=== PATIENT | female | born 1980 | race Caucasian/White ===

== ENCOUNTER 2019-08-17 11:20 | Outpatient (CLI) | payer OTHER, SELFPAY ==
--- NOTE | ~2019-08-17 | CT_ITS ---
EXAMINATION: CT chest wo con DATE: 08/17/2019 11:53 INDICATION: Chest pain and indigestion TECHNIQUE: Computed tomography (CT) of the chest was performed without intravenous contrast. The dose -length product (DLP) was 132.92 mGy-cm. Automated exposure control and iterative reconstruction tech nique were employed. COMPARISON: 10/12/2015 FINDINGS: The lungs are free of acute opacities. There is no pleural effusion or pneumothorax. No pat hologically enlarged thoracic lymph nodes are identified. The heart size is normal. The visualized os seous structures are unremarkable. Punctate calcifications in an otherwise normal spleen likely repre sent healed granulomatous disease. IMPRESSION: 1. No CT correlate for the patient's symptoms. Reviewed, dictated and finalized at location A.
== END 2019-08-17 11:21 | disposition home or self-care (01) ==
PROVIDERS: PCP Internal Medicine; Visit Provider Internal Medicine
DX: R07.9 Chest pain, unspecified (principal)
CPT/HCPCS: 71250

== ENCOUNTER 2020-05-09 17:14 | Emergency (ER) | payer OTHER, SELFPAY ==
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
[2020-05-09 17:26] VITALS: BP 146/80; PULSE 69; RESP 16; TEMP 36.5; O2SAT 100
== END 2020-05-09 17:40 | disposition home or self-care (01) ==
PROVIDERS: Emergency Provider Nurse Practitioner; PCP Internal Medicine
DX: M77.8 Other enthesopathies, not elsewhere classified (principal)
CPT/HCPCS: 73110; 99213; G0463

== ENCOUNTER 2020-10-10 17:21 | Emergency (ER) | payer OTHER, SELFPAY ==
[2020-10-10 17:30] VITALS: BP 130/84; PULSE 103; RESP 16; TEMP 37.2; O2SAT 100
--- NOTE | 2020-10-10 17:52 | ED.ABDPAIN ---
HPI - Abdominal Pain General Chief Complaint: Abdominal Pain Stated Complaint: HEADACHE Time Seen by Provider: 10/10/20 17:34 Source: patient and RN notes reviewed Mode of arrival: ambulatory Limitations: no limitations History of Present Illness HPI narrative: Patient presents today complaining of a 2-day history of generalized abdominal pain she had some diarrhea 2 days ago, but this is now resolved. She currently rates her pain 5/10 and has been taking Pepcid, Nexium, and Pepto-Bismol without relief. Patient works at [employer] and states she was triaged through triage line through her work and was told to go to an ER or urgent care in the area to be evaluated. Patient denies any urinary symptoms to include dysuria, hematuria, frequency or urgency. History of ovarian cyst on the right that is very large. SOAPSTONER would like to have it removed, but patient has not gotten around to having the surgery yet. MD elicited complaint: abdominal pain Related Data Home Medications Medication Instructions Recorded Confirmed esomeprazole magnesium mg 05/09/20 Allergies Allergy/AdvReac Type Severity Reaction Status Date / Time sumatriptan Allergy Unknown Verified 02/20/14 09:18 Review of Systems Review of Systems: CONSTITUTIONAL: Denies body aches, fever, chills, or sweats. EYES: Denies visual changes, redness, or discharge. ENT: Denies rhinorrhea, congestion, sore throat, or otalgia. CARDIOVASCULAR: Denies chest pain, palpitations, or edema. RESPIRATORY: Denies cough or dyspnea. GASTROINTESTINAL: Denies vomiting, or diarrhea. + Nausea, abdominal pain GENITOURINARY: Denies dysuria or hematuria. SKIN: Denies rash, itching, or wounds. MUSCULOSKELETAL: Denies back pain, joint pain, or myalgia. NEUROLOGIC: Denies headache, numbness, tingling, or weakness. PSYCH: Denies depression or anxiety. [facility] Past Medical History Medical History (Updated 10/10/20 @ 18:51 by Samara Rausch, RAJESH, BC) GERD (gastroesophageal reflux disease) Migraine Ovarian cyst Family History Family History Other Family history of arthritis Family history of heart disease in male family member before age 55 Family history of malignant neoplasm Hypertension Social History Social History Smoking status: Never smoker Alcohol intake: current Comments At time of signature, I have reviewed and agree with nursing past medical, surgical, social and family history unless otherwise noted. Please see nursing chart for further information. There is no relevant family history pertinent to the presenting complaint Exam Narrative: GENERAL: Well-appearing, well-nourished, and in no acute distress. HEAD: Normocephalic, atraumatic. EYES: EOMI. No redness or drainage. Conjunctivae normal. ENT: Mucous membranes pink and moist. NECK: Normal AROM. CHEST: No respiratory distress. Clear to auscultation. HEART: Regular rate and rhythm. No murmur appreciated. Normal peripheral pulses. ABDOMEN: Soft, nondistended, normal active bowel sounds. Lower abdominal tenderness bilaterally. No rebound or guarding. MUSCULOSKELETAL: No bony tenderness. EXTREMITIES: Normal range of motion. No edema. SKIN: Warm, dry, no rash. Capillary refill normal. Normal skin turgor. NEURO: No focal deficits. Alert and oriented x3. Gait steady. PSYCH: Normal affect. No signs of depression or anxiety. Course Course Emergency Course: Patient declines transfer to the ER today. States she wants to follow-up with her PCP tomorrow and request an outpatient CT scan. Instructed to take ibuprofen for her pain. Also instructed to go to the ER if she starts running a fever or with any worsening severe pain. Patient agrees. Vital Signs Vital signs: Vital Signs Temperature 99 F 10/10/20 17:30 Pulse Rate 103 H 10/10/20 17:30 Respiratory R
== END 2020-10-10 18:01 | disposition home or self-care (01) ==
PROVIDERS: Emergency Provider Nurse Practitioner; PCP Internal Medicine
DX: R10.30 Lower abdominal pain, unspecified (principal); K21.9 Gastro-esophageal reflux disease without esophagitis
CPT/HCPCS: 81003; 99212; G0463

== ENCOUNTER → 2022-04-29 10:31 | Outpatient (CLI) | payer OTHER, SELFPAY ==
--- NOTE | ~2022-04-29 | XR_ITS ---
Right foot Technique: AP and lateral standing views were obtained. Clinical History: Pain Findings: No acute fracture or dislocation is seen. Osseous alignment is anatomic. Small plantar calc aneal spur noted. Joint spaces are preserved without erosive or degenerative change. Soft tissues are unremarkable. Impression: Small plantar calcaneal spur, otherwise unremarkable exam. Reviewed, dictated and finalized at [facility]. 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
--- NOTE | ~2022-04-29 | XR_ITS ---
Left foot Technique: AP and lateral standing were obtained. Clinical History: Pain Findings: No acute fracture or dislocation is seen. Osseous alignment is anatomic. Joint spaces are p reserved without erosive or degenerative change. Soft tissues are unremarkable. Impression: Unremarkable left foot radiographs. Reviewed, dictated and finalized at [facility]. ICE CARE TRANSITIONS COORDINATOR Impression: Unremarkable left foot radiographs.
--- NOTE | ~2022-04-29 | XR_ITS ---
AP and oblique views of the SI joints CLINICAL HISTORY: Back pain FINDINGS: SI joints are unremarkable. No significant degenerative change. No sclerosis or erosive michael nge. IUD in place. Left arthroplasty noted. Right hip joint space unremarkable. No other soft tissue abnormality seen. IMPRESSION: Unremarkable SI joints. IUD. Left hip arthroplasty. Reviewed, dictated and finalized at location . 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
== END ==
PROVIDERS: PCP Internal Medicine; Visit Provider Internal Medicine Rheumatology
DX: M79.671 Pain in right foot (principal); M79.672 Pain in left foot; M54.50 Low back pain, unspecified; G89.29 Other chronic pain; Z96.642 Presence of left artificial hip joint; M77.31 Calcaneal spur, right foot
CPT/HCPCS: 72202; 73620

== ENCOUNTER → 2022-09-11 11:07 | Outpatient (CLI) | payer OTHER, SELFPAY ==
--- NOTE | ~2022-09-11 | CT_ITS ---
EXAMINATION: CT hip LT wo con DATE: 09/11/2022 11:31 INDICATION: Check for interval growth/with a noncemented left total hip arthroplasty. TECHNIQUE: High resolution computed tomography (CT) of the left hip was performed without intravenous contrast. Additional sagittal and coronal reconstructions were performed. Automated exposure control and iterative reconstruction technique were employed. The dose-length product was 340.65 mGy-cm. COMPARISON: None FINDINGS: Noncemented left total hip arthroplasty which appears well seated in near-anatomic alignment. The emy tabular component is affixed with a couple screws. Small spicules of trabecular bone density seen ext ending to contact the acetabular component as well as the intertrochanteric region of the femoral com ponent. There is no periprosthetic lucency to suggest loosening. No fracture. No left hip joint effus ion. Mild to moderate osteoarthritis at the left sacroiliac joint. T-shaped IUD in expected position within the anteverted uterus. No pathologically enlarged left pelvic or inguinal lymphadenopathy. IMPRESSION: 1. Expected appearance of a left total hip arthroplasty with no findings to suggest loosening. Reviewed, dictated and finalized at location A. IMPRESSION: 1. Expected appearance of a left total hip arthroplasty with no findings to sug gest loosening.
== END ==
PROVIDERS: PCP Internal Medicine; Visit Provider Orthopaedic Surgery
DX: M25.552 Pain in left hip (principal); G89.29 Other chronic pain; Z96.642 Presence of left artificial hip joint
CPT/HCPCS: 73700

== ENCOUNTER 2023-10-23 12:08 | Emergency (ER) | payer OTHER, SELFPAY ==
--- NOTE | ~2023-10-23 | XR_ITS ---
EXAMINATION: XR ankle LT min 3V DATE: 10/23/2023 12:43 INDICATION: Bilateral ankle pain post injury is TECHNIQUE: Anteroposterior, oblique, mortise, and lateral views of the left ankle were obtained. COMPARISON: None. FINDINGS: Bone alignment is normal. No acute fracture. Small corticated ossicle at the tip of the medial malleo becky either chronic nonunited avulsion fracture fragment or more likely heterotopic ossification relat ed to chronic deltoid ligament sprain. Joint spaces at the left ankle and visualized foot are relativ keaton preserved. Diffuse soft tissue swelling about the ankle both medially and laterally. IMPRESSION: 1. No acute osseous abnormality. Reviewed, dictated and finalized at location A.
--- NOTE | ~2023-10-23 | XR_ITS ---
EXAMINATION: XR ankle RT min 3V DATE: 10/23/2023 12:44 INDICATION: Right ankle injury and pain. TECHNIQUE: 4 views of right ankle were obtained. COMPARISON: Right foot radiographs 04/29/2022 FINDINGS: Alignment is normal. No fracture. Joint spaces are normal. There is an enthesophyte at plan tar aspect of calcaneal tuberosity. There is ankle soft tissue swelling. IMPRESSION: 1. No fracture. Reviewed, dictated and finalized at location A. IMPRESSION: 1. No fracture.
[2023-10-23 12:20] VITALS: BP 151/88; PULSE 102; RESP 16; TEMP 36.4; O2SAT 100
--- NOTE | 2023-10-23 12:33 | ED.LOWEXIN ---
HPI - Extremity Injury (Lower) General Chief Complaint: Extremity Injury, Lower Stated Complaint: Left And Right Ankle Pain Time Seen by Provider: 10/23/23 12:33 Source: patient, RN notes reviewed and old records reviewed Mode of arrival: ambulatory Limitations: no limitations History of Present Illness HPI Narrative: 43-year-old [facility] bilateral ankle pain and swelling, worse on left. Patient states that approximately 10:30 this morning she was going down her basement steps and when she reached the bottom her cat got between her feet, causing her to trip. Patient states that she rolled both ankles outward. Patient denies hitting head during fall. Patient reports history dislocation and surgical repair on left ankle, Raynaud's disease, left hip replacement. Patient denies numbness, tingling, weakness. Patient states she has not taken any [id number] medications for pain prior to arrival. Patient arrived with crutches from home. Patient sitting in wheelchair in exam room, in mild distress from pain but still laughing with good sense of humor. Respirations even and nonlabored. Patient in no acute distress. Related Data Home Medications Medication Instructions Recorded Confirmed esomeprazole magnesium 40 mg 40 mg PO DAILY 05/09/20 10/23/23 capsule,delayed release milk thistle 150 mg capsule 150 mg PO BID 09/09/22 10/23/23 multivitamin (Daily Multi-Vitamin 1 tablet PO DAILY 09/09/22 10/23/23 tablet) turmeric 100 mg-jackelyn 150 1 cap PO DAILY 09/09/22 10/23/23 mg-olive 50 mg-oreg 150 mg-capryl capsule Allergies Allergy/AdvReac Type Severity Reaction Status Date / Time sumatriptan Allergy Unknown Anaphylaxis Verified 10/23/23 12:47 Review of Systems Review of Systems: All systems reviewed & are unremarkable except as noted in HPI and below Constitutional: Constitutional: Reports no additional constitutional complaints Eyes: Eyes: Reports no additional eye complaints ENT: Reports system reviewed and no additional complaints, except as documented Cardiovascular: Cardiovascular: Reports no additional cardiovascular complaints, Denies chest pain and Denies dyspnea Respiratory: Respiratory: Reports no additional respiratory complaints, Denies cough and Denies dyspnea Musculoskeletal: Musculoskeletal: Reports as per HPI, Reports abnormal gait, Reports arthralgias, Reports joint swelling, Reports limited range of motion, Denies numbness, Reports radiating pain into limb and Denies tingling Comments: Bilateral ankles; worse on left Neurologic: Reports system reviewed and no additional complaints, except as documented Psychiatric: Psychiatric: Reports no additional psychiatric complaints [facility] Past Medical History Medical History GERD (gastroesophageal reflux disease) Iliopsoas bursitis of left hip Migraine Ovarian cyst Surgical History Surgical History History of ankle surgery 1991- [facility] History of nasal surgery 1992- [facility] History of total left hip arthroplasty 09/30/2021 @[facility] Family History Family History Other Family history of arthritis Family history of heart disease in male family member before age 55 Family history of malignant neoplasm Hypertension Social History Social History Smoking status: Never smoker Alcohol intake: current Substance use type: does not use Living arrangements: with family Occupation/Education: occupation 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
--- NOTE | 2023-10-23 13:47 | PC.NURSE ---
1314 pt refused motrin and reports will take at home. bob keene rn
== END 2023-10-23 13:14 | disposition home or self-care (01) ==
PROVIDERS: Emergency Provider Nurse Practitioner Family; PCP Internal Medicine
DX: S93.402A Sprain of unspecified ligament of left ankle, initial encounter (principal); S93.401A Sprain of unspecified ligament of right ankle, initial encounter; W01.0XXA Fall on same level from slipping, tripping and stumbling without subsequent striking against object, initial encounter; K21.9 Gastro-esophageal reflux disease without esophagitis; I73.00 Raynaud's syndrome without gangrene; Z96.642 Presence of left artificial hip joint
CPT/HCPCS: 73610; 99214; G0463

== ENCOUNTER 2024-06-06 15:58 | Outpatient (CLI) | payer OTHER, SELFPAY ==
--- NOTE | ~2024-06-06 | MR_ITS ---
EXAMINATION: MR lumbar spine wo con DATE: 06/06/2024 16:33 INDICATION: Lumbar radiculopathy TECHNIQUE: Magnetic resonance imaging (MRI) of the lumbar spine was performed without intravenous con trast. Sequences included sagittal T2-weighted FSE, sagittal T2-weighted FS FSE, sagittal T1-weighted FSE, and axial T2-weighted FSE. COMPARISON: 02/07/2017 FINDINGS: Alignment is normal. Vertebral body heights are normal. Interval progression of now severe right-side d predominant disc height loss with associated fibrovascular degenerative endplate changes at L4-L5. Bone marrow signal is otherwise unremarkable. Unchanged moderate disc height loss at L5-S1. Interval progression of now mild disc height loss at L3-L4. There are annular fissures at both L4-L5 and L5-S1 . The conus medullaris terminates at L2. There is normal signal in the caudal spinal cord. Paraverteb ral soft tissues are unremarkable. The following disc levels are specifically discussed: T12-L1: Disc is minimally bulging. There is mild left and moderate right facet joint osteoarthritis. There is no neural foraminal stenosis. There is no central canal stenosis. L1-L2: Disc is minimally bulging. There is moderate right and mild to moderate left facet joint osteo arthritis. There is no neural foraminal stenosis. There is no central canal stenosis. L2-L3: Disc is minimally bulging. There is moderate right and mild left facet joint osteoarthritis. T here is no neural foraminal stenosis. There is no central canal stenosis. L3-L4: Disc is mildly bulging. There is moderate bilateral facet joint osteoarthritis. There is mild bilateral neural foraminal stenosis. There is mild central canal stenosis. L4-L5: Disc is bulging. There is mild left and severe right facet joint osteoarthritis. There is mild left and mild to moderate right neural foraminal stenosis. There is mild central canal stenosis. L5-S1: Disc is bulging. There is moderate bilateral facet joint osteoarthritis. There is moderate lef t and mild to moderate right neural foraminal stenosis. There is no central canal stenosis. IMPRESSION: 1. Interval progression of lower lumbar spondylosis with now severe disc height loss at L5-S1 and mil d disc height loss at L4-L5. Reviewed, dictated and finalized at location A. IMPRESSION: 1. Interval progression of lower lumbar spondylosis with now severe disc height loss at L5-S1 and mild disc height loss at L4-L5.
== END 2024-06-06 15:59 | disposition home or self-care (01) ==
PROVIDERS: PCP Internal Medicine
DX: M47.26 Other spondylosis with radiculopathy, lumbar region (principal)
CPT/HCPCS: 72148

== ENCOUNTER 2024-10-06 15:07 | Emergency (ER) | payer OTHER, SELFPAY ==
--- OUTSIDE RECORDS SUMMARY | 2024-10-06 15:09 | XMS_ITS | Encounter Summary ---
Author Organization [facility] Address [address] [place] [address] Care Team Providers Care Saxophone Assembler Name Role Phone Jorge Alberto Foster MD Primary Care Provider [phone] Celso Barber MD Unavailable [phone] Reason for Visit * Diagnostic Imaging (Routine) - Closed Specialty Diagnoses / Procedures Referred By Cedric jean Referred To Contact Diagnoses Hepatic steatosis Procedures Breast Imaging Diagnostic Outside Reference Kareen Steele MD PhD [id number] [place] [address] Phone: tel: fax: Referral ID Status Reason Start Date Expiration Date Visits Re quested Visits Authorized [id number] Closed 07/02/2021 08/01/2022 1 1 Encounter Details Date Type Department Care Team (Late st Contact Info) Description 05/16/2020 Hospital Encounter [facility] [address] [place] [id number] Social History Tobacco Use Types Packs/Day Years Used Date Smoking Tobacco: Never Smokeless Tobacco: Never Alcohol Use Standard Drinks/Week Comments Yes 0 (1 standard drink = 0.6 oz pur e alcohol) AUDIT-C Answer Date Recorded Q1: How often do you have a drink containing alc ohol? 2-3 times a week 09/30/2021 Q2: How many drinks containi ng alcohol do you have on a typical day when you are drinking? 1 or 2 09/30/2021 Q3: How often do you have si x or more drinks on one occasion? Never 09/30/2021 Personal Safety Answer Date Recorded Have you ever been in or are you currently in a harmful physical or emotional relationship or is someone making you feel afraid or unsafe? 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 2-3 times a week 09/30/2021 6:15 AM NATALIET Roni Brasher RN Q2: How many drinks containing alcohol do you have on a typical day when you are drinking? 1 or 2 09/16/2021 3:04 PM CDT Rukhsana Jimenez RN Q3: How often do you have six or more drinks on one occasion? Never 09/16/2021 3:04 PM CDT Rukhsana Jimenez RN documented as of this encounter Plan of Treatment Not on file documented as of this encounter Procedures Procedure Name Priority Date/Time Associated Diagnosis Comments BREAST IMAGING MG DIAGNOSTIC OUTSIDE REFERENCE Routine 05/16/2020 12:00 AM CDT Hepatic steatosis documented in this encounter Results * Breast Imaging Diagnostic Outside Reference (05/16/2020 12:00 AM CDT) Impressions [facility] - 07/02/2021 2:44 PM CDT These images are for Reference purposes only and have not been reviewed by [facility]. There will be no report generated by a [facility] Radiologist. Narrative [facility] - 07/02/2021 2:44 PM CDT EXAMINATION: Images For Reference Purposes Only us Kareen Steele MD PhD IMG MAMMO PROCEDURES Final Result [facility] documented in this encounter Visit Diagnoses Not on filedocumented in this encounter Additional Health Concerns Infection Onset Date Last Indicated Resolved Time COVID: Suspected 07/16/2021 07/16/2021 07/17/2021 3:05 AM CDT COVID19 07/16/2021 07/16/2021 07/26/2021 3:05 AM CDT COVID: Recovered Comment:Added based on recent COVID infection. 07/26/2021 07/26/2021 11/23/2021 3:05 AM C DT documented as of this encounter Care Teams Saxophone Assembler Relationship Specialty Start Date End Date Jorge Alberto Foster MD PCP - General 01/05/17 10/09/20 Celso Barber MD [address] [facility] [address] [place] [address] Surgeon Orthopedic Surgery 07/22/18 documented as of this encounter
--- OUTSIDE RECORDS SUMMARY | 2024-10-06 15:09 | XMS_ITS | Encounter Summary ---
Author Organization [facility] Address [address] [place] [address] Phone Care Team Providers Care Product Technology Scientist Name Role Phone Jorge Alberto Foster MD Primary Care Provider [phone] Celso Barber MD Unavailable [phone] Radha Cruz DNP Primary Care Provide r Jorge Alberto Foster MD Primary Care Provider [phone] Encounter Details Date Type Department Care Team (Late st Contact Info) Description 06/15/2017 Orders Only [facility] Scanning, Provider Social History Tobacco Use Types Packs/Day Years Used Date Smoking Tobacco: Never Alcohol Use Standard Drinks/Week Comments Yes 0 (1 standard drink = 0.6 oz pur e alcohol) Comments Unknown Sex and Gender Information Value Date Recorded Sex Assigned at Not on file Legal Sex Female 1:26 AM [employer] Gender Identity Not on file Sexual Orientation Not on file documented as of this encounter Plan of Treatment Not on file documented as of this encounter Procedures Procedure Name Priority Date/Time Associated Diagnosis Comments GI - RESULT 06/15/2017 documented in this encounter Results * GI - RESULT (06/15/2017) Anatomical Region Laterality Modality Other us Provider Scanning Edited Result - Final documented in this encounter Visit Diagnoses Not on filedocumented in this encounter Additional Health Concerns Infection Onset Date Last Indicated Resolved Time COVID: Suspected 07/16/2021 07/16/2021 07/17/2021 3:05 AM CDT COVID19 07/16/2021 07/16/2021 07/26/2021 3:05 AM CDT COVID: Recovered Comment:Added based on recent COVID infection. 07/26/2021 07/26/2021 11/23/2021 3:05 AM C DT documented as of this encounter Care Teams Product Technology Scientist Relationship Specialty Start Date End Date Jorge Alberto Foster MD PCP - General 01/05/17 10/09/20 Radha Cruz DNP [id number] [address] PCP - General Nurse Practitioner 10/10/20 08/06/21 Jorge Alberto Foster MD PCP - General Internal Medicine 08/07/21 Celso Barber MD [id number] [address] Surgeon Orthopedic Surgery 07/22/18 documented as of this encounter
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
--- OUTSIDE RECORDS SUMMARY | 2024-10-06 15:09 | XMS_ITS | Encounter Summary ---
Author Organization [facility] Healthcare Address [address] [place] [address] Care Team Providers Care Safety Risk Lead Name Role Phone Jorge Alberto Foster MD Primary Care Provider [phone] Reason for Visit * Diagnostic Imaging (Routine) - Closed Specialty Diagnoses / Procedures Referred By Contac t Referred To Contact Procedures Breast Imaging Screening Outside Reference Kareen Steele MD PhD [phone] [place] [address] Phone: tel: fax: Referral ID Status Reason Start Date Expiration Date Visits Re quested Visits Authorized [id number] Closed 07/02/2021 08/01/2022 1 1 Encounter Details Date Type Department Care Team (Late st Contact Info) Description 12/03/2017 Hospital Encounter [facility] [address] [place] [id number] Social History Tobacco Use Types Packs/Day Years [...] on file 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 2-3 times a week 09/30/2021 6:15 AM CDT Roni Brasher RN Q2: How many drinks containing alcohol do you have on a typical day when you are drinking? 1 or 2 09/16/2021 3:04 PM NATALIET Rukhsana Jimenez RN Q3: How often do you have six or more drinks on one occasion? Never 09/16/2021 3:04 PM CDT Rukhsana Jimenez RN documented as of this encounter Plan of Treatment Not on file documented as of this encounter Procedures Procedure Name Priority Date/Time Associated Diagnosis Comments BREAST IMAGING MG SCREENING OUTSIDE REFERENCE Routine 12/03/2017 12:00 AM CDT documented in this encounter Results * Breast Imaging Screening Outside Reference (12/03/2017 12:00 AM CDT) Impressions [facility] - 07/02/2021 2:45 PM CDT These images are for Reference purposes only and have not been reviewed by [facility] Radiology. There will be no report generated by a [facility] Radiologist. Narrative [facility] - 07/02/2021 2:45 PM CDT EXAMINATION: Images For Reference Purposes [...] documented as of this encounter Care Teams Safety Risk Lead Relationship Specialty Start Date End Date Jorge Alberto Foster MD PCP - General 01/05/17 10/09/20 documented as of this encounter
--- OUTSIDE RECORDS SUMMARY | 2024-10-06 15:09 | XMS_ITS | Clinical Summary ---
Author Organization [facility] Address [address] [facility] [place] [place] [address] Care Team Providers Care Real Estate Branch Manager Name Role Phone Guanakito Gonsalez MD Primary Care Provider [phone] [facility],non-owned Affiliates and Associated Physician Practices is amultiple site organization consisting of ambulatory clinics and hospital sitesin [place], [place], [place] and [place]. This disclosure is being madepursuant to the Care Everywhere program and may not contain all information available regarding this patient. Last updated 17.[facility] Allergies No known active allergies Medications * Be aware that medications may not be up to date on this document. Alwaysverify current medications with the patient. 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 Gender Identity Not on file Sexual Orientation Not on file Last Filed Vital Signs Vital Sign Reading Time Taken Comments Blood Pressure 144/70 10/17/2014 1:47 PM CDT Pulse - - Temperature - - Respiratory Rate - - Oxygen Saturation - - Inhaled Oxygen Concentration - - Weight 70.3 kg (155 lb) 10/17/2014 1:47 PM CDT Height 177.8 cm (5' 10) 10/17/2014 1:47 PM CDT Body Mass Index 22.24 10/17/2014 1:47 PM CDT Plan of Treatment Health Maintenance Due Date Last Done Comments COLOGUARD (AGES 45-75) - COL ON CA SCREENING 1978 COLON MONITORING 1978 COLONOSCOPY - COLON CA SCREENING 1978 CT COLONOGRAPHY - COLON CA SCREENING 1978 Colorectal Cancer Screening 1978 FIT - COLON CA SCREENING 1978 FLEX SIG - COLON CA SCREENING 1978 LIPID TESTING 1978 MAMMOGRAM 1978 HIV SCREENING 1993 HEPATITIS C SCREENING 02/19/1996 DTAP/TDAP/TD VACCINES (1 - Tdap) 1997 HEPATITIS B VACCINE (1 of 3 - 19+ 3-dose series) 1997 COVID-19 VACCINE (1 - 2023-2 5 season) 2023 DEPRESSION SCREENING 03/02/2024 INFLUENZA VACCINE (#1) 2024 ZOSTER VACCINE (1 of 2) 02/24/2028 HIB VACCINE Aged Out No longer eligi ble based on patient's age to complete this topic HPV VACCINE Aged Out No longer eligi ble based on patient's age to complete this topic MENINGOCOCCAL (Group B) VACC INE SHARED DECISION-MAKING Aged Out No longer eligibl e based on patient's age to complete this topic MENINGOCOCCAL GROUPS A/C/Y/W VACCINE Aged Out No longer eligible b ased on patient's age to complete this topic PNEUMOCOCCAL VACCINE Aged Out No long er eligible based on patient's age to complete this topic Insurance [facility] [address] Care Teams Real Estate Branch Manager Relationship Specialty Start Date End Date Guanakito Gonsalez MD PCP - General Internal Medicine 10/11/14
--- OUTSIDE RECORDS SUMMARY | 2024-10-06 15:09 | XMS_ITS | Encounter Summary ---
Author Organization [facility] Address [address] [place] [address] Phone Care Team Providers Care Paper Goods Machine Set Up Operator Name Role Phone Jorge Alberto Foster MD Primary Care Provider [phone] Celso Barber MD Unavailable [phone] Radha Cruz DNP Primary Care Provide r Jorge Alberto Foster MD Primary Care Provider [phone] Encounter Details Date Type Department Care Team (Late st Contact Info) Description 12/07/2015 Orders Only [facility] Scanning, Provider Social History Tobacco Use Types Packs/Day Years Used Date Smoking Tobacco: Never Assessed Alcohol Use Standard Drinks/Week Comments Yes 0 (1 standard drink = 0.6 oz pur e alcohol) Comments Unknown Sex and Gender Information Value Date Recorded Sex Assigned at Not on file 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 Gender Identity Not on file Sexual Orientation Not on file documented as of this encounter Plan of Treatment Not on file documented as of this encounter Procedures Procedure Name Priority Date/Time Associated Diagnosis Comments GI - RESULT 12/07/2015 documented in this encounter Results * GI - RESULT (12/07/2015) Anatomical Region Laterality Modality Other us Provider Scanning Final Result documented in this encounter Visit Diagnoses Not on filedocumented in this encounter Additional Health Concerns Infection Onset Date Last Indicated Resolved Time COVID: Suspected 07/16/2021 07/16/2021 07/17/2021 3:05 AM CDT COVID19 07/16/2021 07/16/2021 07/26/2021 3:05 AM CDT COVID: Recovered Comment:Added based on recent COVID infection. 07/26/2021 07/26/2021 11/23/2021 3:05 AM C DT documented as of this encounter Care Teams Paper Goods Machine Set Up Operator Relationship Specialty Start Date End Date Jorge Alberto Foster MD PCP - General 01/05/17 10/09/20 Radha Cruz DNP [address] [address] PCP - General Nurse Practitioner 10/10/20 08/06/21 Jorge Alberto Foster MD PCP - General Internal Medicine 08/07/21 Celso Barber MD [address] [address] Surgeon Orthopedic Surgery 07/22/18 documented as of this encounter
--- OUTSIDE RECORDS SUMMARY | 2024-10-06 15:09 | XMS_ITS | Clinical Summary ---
Author Organization [facility] [place] Address [address] [place] [address] Phone Care Team Providers Care Production Or Plant Engineer Name Role Phone Jorge Alberto Foster MD Primary Care Provider Allergies Active Allergy Reactions Criticality Noted Date Comments Sumatriptan Succinate Shortness of Breath/Wheezing,Swelling High 09/20/2010 Medications MULTIVITAMINS WITH FLUORIDE (MULTI VIT-FLUORIDE ORAL)Indication s:Benign breast lumps Take by mouth. Active omeprazole (PRILOSEC) 40 mg Capsule, Delayed Release(E.C.) 06/05/2014 Activ e ibuprofen (ADVIL) 100 mg Tablet, Chewable Take 500 mg by mouth 2 times daily. Active calcium as carbonate 215 mg calcium (500 mg) Tablet, Chewable Take 1 Tablet by mouth. Active OTHER Turmeric Active cholecalciferol , vitamin D3, 5,000 unit Take 400 Units by mouth daily. Active Active Problems Patient Care Coordination No te Formatting of this note migh t be different from the original. Primary Care: Nathalie Wooten MD Referring Provider: Nathalie Wooten MD [address] [place] [address] Other: Problem Noted Date Diagnosed Date Breast pain 08/14/2014 Benign breast lumps 09/20/2010 Heart murmur Family History Medical History Relation Name Comments Cancer Other pat great grandmother stomac h Breast Cancer Paternal Grandmother dx @ a ge 70 Relation Name Status Comments Other pat great grandmother Alive Paternal Grandmother Social History Tobacco Use Types Packs/Day Years Used Date Smoking Tobacco: Never Smokeless Tobacco: Never Alcohol Use Standard Drinks/Week Comments Yes 0 (1 standard drink = 0.6 oz pur e alcohol) moderate Comments No Sex and Gender Information Value Date Recorded Sex Assigned at Not on file Legal Sex Female 5:44 AM PHYSICIAN PRACTICE ADMINISTRATOR Gender Identity Not on file Sexual Orientation Not on file Last Filed Vital Signs Vital Sign Reading Time Taken Comments Blood Pressure 102/68 10/11/2020 11:00 AM CDT Pulse 65 10/11/2020 11:00 AM CDT Temperature 36.6 C (97.8 F) 10/11/2020 7:59 AM CDT Respiratory Rate 11 10/11/2020 11:00 AM CDT Oxygen Saturation 97% 10/11/2020 11:00 AM CDT Inhaled Oxygen Concentration - - Weight 71.7 kg (158 lb) 06/11/2021 9:58 AM CDT Height 177.8 cm (5' 10) 06/11/2021 9:58 AM CDT Body Mass Index 22.67 06/11/2021 9:58 AM CDT Plan of Treatment Health Maintenance Due Date Last Done Comments DTAP/TDAP/TD VACCINES (1 - Tdap) 1997 HEPATITIS B VACCINES (1 of 3 - 19+ 3-dose series) 1997 HPV/Cotest (21-29) 1999 CERVICAL CANCER SCREENING 02/24/2008 HPV/Cotest (30-65) 02/24/2008 PAP SMEAR 02/24/2008 BREAST CANCER SCREENING 2018 05/23/2014 COLORECTAL SCREENING 2023 Colorectal Cancer Screening 2023 FIT-DNA Q 3 years 2023 FIT/FOBT Q 1 year 2023 Flex Sig/CT Colonography Q 5 years 2023 COVID-19 Vaccine (3 - 2023-2 5 season) 2023 09/14/2020, 05/17/2020 INFLUENZA VACCINE (#1) 2024 HPV VACCINES Aged Out No longer eligi ble based on patient's age to complete this topic Procedures Procedure Name Priority Date/Time Associated Diagnosis Comments MAMMO DIAGNOSTIC BILATERAL W OR WO CAD Routine 05/23/2014 from Last 3 Months or Most Recently Relevant to Health Maintenance Results * (ABNORMAL) MAMMO DIGITAL DIAG BILAT (05/23/2014) Anatomical Region Laterality Modality Breast Bilateral Other us Nathalie Wooten MD MAMMO ORDERABLES Final Result from Last 3 Months or Most Recently Relevant to Health Maintenance Insurance [employer] Care Teams Production Or Plant Engineer Relationship Specialty Start Date End Date Jorge Alberto Foster MD [address] [id number] PCP - General Internal Medicine 10/11/20
--- OUTSIDE RECORDS SUMMARY | 2024-10-06 15:09 | XMS_ITS | Encounter Summary ---
Author Organization [facility] Healthcare Address [address] [place] [address] Care Team Providers Care Peer Specialist Name Role Phone Unavailable Primary Care Provider Unavailabl e Reason for Visit * Diagnostic Imaging (Routine) - Closed Specialty Diagnoses / Procedures Referred By Contac t Referred To Contact Procedures Breast Imaging Diagnostic Outside Reference Kareen Steele MD PhD [address] [id number] [place] [address] Phone: tel: fax: Referral ID Status Reason Start Date Expiration Date Visits Re quested Visits Authorized [id number] Closed 07/02/2021 08/01/2022 1 1 Encounter Details Date Type Department Care Team (Late st Contact Info) Description 05/23/2014 Hospital Encounter [facility] [address] [place] [address] Social History Tobacco Use Types Packs/Day Years [...] on file 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 There will be no report generated by a [facility] Radiologist. Narrative [facility] - 07/02/2021 2:45 PM [...]
--- OUTSIDE RECORDS SUMMARY | 2024-10-06 15:09 | XMS_ITS | Encounter Summary ---
Author Organization [facility] Healthcare Address [address] [place] [address] Care Team Providers Care Construction Checker Name Role Phone Jorge Alberto Foster MD Primary Care Provider [phone] Celso Barber MD Unavailable [phone] Reason for Visit * Diagnostic Imaging (Routine) - Closed Specialty Diagnoses / Procedures Referred By Contmelissa t Referred To Contact Procedures Breast Imaging Screening Outside Reference Kareen Steele MD PhD [address] [id number] [place] [address] Phone: tel: fax: Referral ID Status Reason Start Date Expiration Date Visits Re quested Visits Authorized [id number] Closed 07/02/2021 08/01/2022 1 1 Encounter Details Date Type Department Care Team (Late st Contact Info) Description 04/12/2020 Hospital Encounter [facility] [address] [place] [address] Social History Tobacco Use Types Packs/Day Years [...] on file 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 There will be no report generated by a [facility] Radiologist. Narrative [facility] - 07/02/2021 2:44 [...] documented as of this encounter Care Teams Construction Checker Relationship Specialty Start Date End Date Jorge Alberto Foster MD PCP - General 01/05/17 10/09/20 Celso Barber MD [address] [facility] [address] [place] [address] Surgeon Orthopedic Surgery 07/22/18 documented as of this encounter
--- OUTSIDE RECORDS SUMMARY | 2024-10-06 15:10 | XMS_ITS | Clinical Summary ---
Author Organization [facility] Address [address] [place] [address] Phone Care Team Providers Care Safety Council Director Name Role Phone Jorge Alberto Foster MD Primary Care Provider [phone] Fareed Vitale MD Unavailable [phone] Allergies Active Allergy Reactions Criticality Noted Date Comments Sumatriptan Swelling High 06/11/2022 Medications Multiple Vitamin (MULTIVITAMIN PO) Take by mouth. Active Turmeric 400 MG Capsule Take by mouth. Active MILK THISTLE PO Take by mouth. Active Family History Medical History Relation Name Comments Hypertension Father Multiple Sclerosis Mother Relation Name Status Comments Father Mother Alive Social History Tobacco Use Types Packs/Day Years Used Date Smoking Tobacco: Never Smokeless Tobacco: Never Alcohol Use Standard Drinks/Week Comments Yes 0 (1 standard drink = 0.6 oz pur e alcohol) moderate Comments Unknown Sex and Gender Information Value Date Recorded Sex Assigned at Not on file Legal Sex Female 5:41 PM CDT Gender Identity Not on file Sexual Orientation Not on file Last Filed Vital Signs Vital Sign Reading Time Taken Comments Blood Pressure 134/72 08/07/2022 2:47 PM CDT Pulse 72 08/07/2022 2:47 PM CDT Temperature 36.6 C (97.9 F) 08/07/2022 2:47 PM CDT Respiratory Rate 17 08/07/2022 2:47 PM CDT Oxygen Saturation - - Inhaled Oxygen Concentration - - Weight 69.9 kg (154 lb) 08/07/2022 2:47 PM CDT Height 177.8 cm (5' 10) 08/07/2022 2:47 PM CDT Body Mass Index 22.1 08/07/2022 2:47 PM CDT Plan of Treatment Health Maintenance Due Date Last Done Comments Hepatitis C Virus (HCV) Screening 1978 TdaP Immunization 1978 Hepatitis B Immunization (1 of 3 - 19+ 3-dose series) 1997 Pap Smear 1999 Cervical Cancer Screening (CCS) 02/24/2008 HPV/Cotest 02/24/2008 Mammogram 05/24/2015 05/23/2014 Cologuard 2023 Colonoscopy 2023 Colorectal Cancer Screening 2023 Immunochemical Fecal Occult Blood 2023 SARS-COV-2 Immunization ( season) 2023 09/14/2020, 05/18/2020 Influenza Immunization (#1) 2024 Respiratory Syncytial Virus (RSV) Immunization (Adult) (1 - 1-dose 75+ series) 2053 Discussion re Starting/Frequency of Mammograms Completed 05/23/2014 Human Papillomavirus (HPV) Immunization Aged Out No longer eligible b ased on patient's age to complete this topic Meningococcal Immunization (ACWY) Aged Out No longer eligible b ased on patient's age to complete this topic Pneumococcal Immunization Combined Aged Out No longer eligible b ased on patient's age to complete this topic Rotavirus Immunization Aged Out No lo nger eligible based on patient's age to complete this topic Insurance Care Teams Safety Council Director Relationship Specialty Start Date End Date Jorge Alberto Foster MD PCP - General Internal Medicine 08/07/22 Fareed Vitale MD [address] [place] [address] Consulting Physician Neurology 08/07/22
--- OUTSIDE RECORDS SUMMARY | 2024-10-06 15:10 | XMS_ITS | Encounter Summary ---
Author Organization [facility] Healthcare Address [address] [place] [address] Care Team Providers Care Languages And Literature Instructor Name Role Phone Jorge Alberto Foster MD Primary Care Provider [phone] Celso Barber MD Unavailable [phone] Reason for Visit * Diagnostic Imaging (Routine) - Closed Specialty Diagnoses / Procedures Referred By Contmelissa t Referred To Contact Procedures Breast Imaging Screening Outside Reference Kareen Steele MD PhD [address] [id number] [place] [address] Phone: tel: fax: Referral ID Status Reason Start Date Expiration Date Visits Re quested Visits Authorized [id number] Closed 07/02/2021 08/01/2022 1 1 Encounter Details Date Type Department Care Team (Late st Contact Info) Description 12/31/2018 Hospital Encounter [facility] [address] [place] [address] Social History Tobacco Use Types Packs/Day Years [...] on file 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 There will be no report generated by a [facility] Radiologist. Narrative [facility] - 07/02/2021 [...] documented as of this encounter Care Teams Languages And Literature Instructor Relationship Specialty Start Date End Date Jorge Alberto Foster MD PCP - General 01/05/17 10/09/20 Celso Barber MD [address] [facility] [address] [place] [address] Surgeon Orthopedic Surgery 07/22/18 documented as of this encounter
[2024-10-06 15:27] VITALS: BP 170/83; PULSE 73; RESP 18; TEMP 36.4; O2SAT 100
[2024-10-06 15:48] LABS: EDCOVIDSCREEN Negative (Negative); EDINFLUASCREEN Negative (Negative); EDINFLUBSCREEN Negative (Negative); EDSTREPNEGPOS1 Negative (Negative)
--- NOTE | 2024-10-06 16:12 | ED_ITS ---
HPI - URI/Sore Throat General Chief Complaint: Upper Respiratory Infection Stated Complaint: Sore Throat/Headache/Congestion Time Seen by Provider: 10/06/24 15:45 Source: patient and RN notes reviewed Mode of arrival: ambulatory Limitations: no limitations History of Present Illness HPI Narrative: 44-year-old female presents to the [facility] complaining of upper respiratory symptoms for last 2 weeks. Patient reports sinus pressure, congestion, runny nose, sore throat, dry cough. Patient states symptoms are not getting any better. Patient has been trying [id number] cold/flu medicine the relief. Patient denies any fevers, body aches, chills, nausea vomiting, chest pain, or difficulty breathing. Related Data Home Medications ?Medication ?Instructions ?Recorded ?Confirmed ?Last Taken ?Type esomeprazole magnesium 40 mg 40 mg PO DAILY 05/09/20 11/10/23 Unknown History capsule,delayed release milk thistle 150 mg capsule 150 mg PO BID 09/09/22 11/10/23 Unknown History multivitamin (Daily Multi-Vitamin 1 tablet PO DAILY 09/09/22 11/10/23 Unknown History tablet) turmeric 100 mg-jackelyn 150 1 cap PO DAILY 09/09/22 11/10/23 Unknown History mg-olive 50 mg-oreg 150 mg-capryl capsule Allergies Allergy/AdvReac Type Severity Reaction Status Date / Time sumatriptan Allergy Unknown Anaphylaxis Verified 10/06/24 15:26 Review of Systems Review of Systems: CONSTITUTIONAL: Denies fever, chills, body aches, or sweats. EYES: Denies visual changes, redness, or discharge. ENT: Positive for rhinorrhea, congestion, sore throat. Negative for otalgia. CARDIOVASCULAR: Denies chest pain, palpitations, or edema. RESPIRATORY: Positive for cough. Negative for dyspnea or wheezing. GASTROINTESTINAL: Denies abdominal pain, nausea, vomiting, or diarrhea. GENITOURINARY: Denies dysuria or hematuria. SKIN: Denies rash or itching. MUSCULOSKELETAL: Denies back pain, joint pain, or myalgia. NEUROLOGIC: Denies headache, numbness, or weakness. PSYCHIATRIC: Denies anxiety or depression. All other systems reviewed are negative, except as documented in HPI. [facility] Past Medical History Medical History Ankle joint instability History of sprain of both ankles Iliopsoas bursitis of left hip GERD (gastroesophageal reflux disease) Ovarian cyst Migraine Surgical History Surgical History History of nasal surgery 1992- [facility] History of ankle surgery 1991- 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 There is no relevant family history pertinent to the patient complaint. Exam Narrative: GENERAL: This is a well-nourished, well-developed adult, in no apparent distress. They are non ill-appearing, nontoxic appearing. HEAD: normocephalic, atraumatic. EYES: Sclera clear/white. Vision is grossly intact. Conjunctiva normal bilaterally. Extraocular movements intact. EARS: External ears normal, auditory canals clear and without drainage, TMs without erythema or perforation. Hearing grossly intact. NOSE: External nose normal with no obvious nasal discharge, nasal turbinates erythematous, no rhinorrhea. Maxillary and frontal sinus tenderness to palpation. THROAT: Mucous membranes moist, posterior pharynx erythema without swelling without exudate. Tonsils erythematous 2+. No exudate. Uvula is midline. Postnasal drip present. NECK: Neck supple, non-tender without lymphadenopathy, masses or thyromegaly. CARDIOVASCULAR: Regular rate and rhythm without murmurs, gallops, or rubs. RESPIRATORY: Clear to auscultation. Breath sounds equal bilaterally. No wheezes, rales, or rhonchi. SKIN: warm, Dry, intact with no suspicious lesions or rash, good texture and turgor. NEURO: awake, alert, and oriented to person, place and time. There were no obvious focal neurologic abnormalities. EXTREMITIES: No joint tenderness, effusion, or edema noted. BACK: Nontender without deformity. Course Course Emergency Course: Portions of this record may have been created with voice recognition software Level of Care: Express Care Visit Vital Signs Vital signs: Vital Signs Temperature 97.6 F 10/06/24 15:27 Pulse Rate 73 10/06/24 15:27 Respiratory Rate 18 10/06/24 15:27 Blood Pressure 170/83 H 10/06/24 15:27 Pulse Oximetry 100 10/06/24 15:27 Oxygen Delivery Room Air 10/06/24 15:27 Temperature 97.6 F 10/06/24 15:27 Pulse Rate 73 10/06/24 15:27 Respiratory Rate 18 10/06/24 15:27 Blood Pressure 170/83 H 10/06/24 15:27 Pulse Oximetry 100 10/06/24 15:27 Oxygen Delivery Room Air 10/06/24 15:27 MDM - URI/Sore Throat MDM Narrative Medical decision making narrative: Rapid COVID, flu, strep were negative. A throat culture is pending. Given length of patient's symptoms likely she developed a bacterial sinusitis. Will treat with Augmentin. MDM Differential Diagnosis Differential diagnosis: Likely upper respiratory infection, sinusitis and p haryngitis Lab Data Attestation: I reviewed the patient's lab results. Labs: Lab Results 10/06/24 Range/Units 15:28 POC Influenza A Ag Negative (Negative) POC Influenza B Ag Negative (Negative) POC SARS CoV-2 Ag Negative (Negative) POC Grp A Strep Screen Negative (Negative) Discharge Plan Discharge Clinical Impression: Sinusitis Qualifiers: Sinusitis location: unspecified location Chronicity: acute Recurrence: non- recurrent Qualified Code(s): J01.90 - Acute sinusitis, unspecified Patient Disposition: Home Condition: Stable Instructions: Antibiotic Form, Sinusitis (ED) Additional Instructions: Your rapid COVID strep and flu were negative today. A throat culture will be sent off and if it is positive you will be contacted. Take the antibiotics as directed and complete the course even if you start to feel better. You may use a Neti pot saline rinse 3 times a day with lukewarm distilled water Continue to take Tylenol or Motrin for pain. The instructions on the bottle. Use a humidifier or vaporizer at night. Drink plenty of water. 8-10 glasses per day. Use flonase 2 times per day for 5 days then as needed Take mucinex 2 times per day and be sure to take with 8oz of water. Follow up with Primary provider in 3-5 days Please go to the ER if he develops any difficulty breathing, worsening symptoms, or any other concerns Patient Language: Albanian Prescriptions: New amoxicillin-pot clavulanate 875-125 mg tablet 1 tablet PO Q12H 7 Days Qty: 14 0RF No Action esomeprazole magnesium 40 mg capsule,delayed release(DR/EC) 40 mg PO DAILY milk thistle 150 mg capsule 150 mg PO BID Rx Instructions: give with meal/snack multivitamin [Daily Multi-Vitamin] Tablet 1 tablet PO DAILY nqliziag-[id number]-[id number]-oreg-capry 100 mg-150 mg- 50 mg-150 mg capsule 1 cap PO DAILY Follow-up/Referrals: Cristian,Jorge Alberto Clayton MD [Primary Care Provider] - Time of Disposition: 15:59
== END 2024-10-06 16:08 | disposition home or self-care (01) ==
PROVIDERS: PCP Internal Medicine
DX: J01.90 Acute sinusitis, unspecified (principal); Z20.822 Contact with and (suspected) exposure to COVID-19; K21.9 Gastro-esophageal reflux disease without esophagitis; Z96.642 Presence of left artificial hip joint
CPT/HCPCS: 87081; 87426; 87804; 87880; 99213; G0463